=== PATIENT | female | born 1940 | race Hispanic/Latino ===

== ENCOUNTER 2017-07-03 17:11 | Inpatient (IN) | payer MEDICARE, BC ==
[2017-07-03 17:49] VITALS: BMI 24.6
--- NOTE | 2017-07-03 18:06 | ED PDOC ---
Arrival/HPI - General Chief Complaint: Seizure Time Seen by Provider: 07/03/17 17:11 Historian: Patient, Spouse - History of Present Illness Time/Duration: Other (Last night) Symptom Onset: Sudden Symptom Course: Resolved Severity Level: Severe Associated Symptoms (Text): 07/03/17 18:04 Patient was sitting on a train last evening next to her . described approximately 1 minute of shaking with foaming at the mouth and inability to wake his . She was incontinent of urine. No tongue biting. This has never happened previously. No history of seizures. She's been fine since then. No headache dizziness or lightheadedness. No numbness tingling or weakness. No chest pain palpitations or dyspnea. No abdominal pain nausea or vomiting. No injury or trauma. No fever or chills. Family/Social History - Physician Review Nursing Documentation Reviewed: Yes Family/Social History: Unknown Family HX Smoking Status: Never Smoked Hx Alcohol Use: No Hx Substance Use: No Allergies/Home Meds Allergies/Adverse Reactions: Allergies No Known Allergies Allergy (Verified 07/03/17 17:49) Home Medications: Home Meds Medication Instructions Recorded Confirmed Atorvastatin [Lipitor] 10 mg PO DAILY 07/03/17 07/03/17 Bimatoprost [Lumigan 2.5 ml] 2.5 ml OP DAILY 07/03/17 07/03/17 Brinzolamide/Brimonidine Tart 8 ml OP DAILY 07/03/17 07/03/17 [Simbrinza 0.2%-1% 8 ml] Lisinopril/Hydrochlorothiazide 20 mg PO DAILY 07/03/17 07/03/17 [Lisinopril-Hctz 20-12.5 mg Tab] Nadolol [Corgard] 20 mg PO DAILY 07/03/17 07/03/17 amLODIPine [Norvasc] 5 mg PO DAILY 07/03/17 07/03/17 Review of Systems - Physician Review All systems were reviewed & negative as marked: Yes - Review of Systems Constitutional: Normal Respiratory: Normal Cardiovascular: Normal Gastrointestinal: Normal Genitourinary Female: Normal Neurological: Normal. absent: Headache, Dizziness, Focal Weakness, Gait Changes Physical Exam Vital Signs Temp Pulse Resp BP Pulse Ox 07/03/17 17:53 98.6 F 94 H 20 163/93 H 97 Temperature: Afebrile Blood Pressure: Normal Pulse: Regular Respiratory Rate: Normal Appearance: Positive for: Well-Appearing, Non-Toxic, Comfortable Pain Distress: None Mental Status: Positive for: Alert and Oriented X 3 - Systems Exam Head: Present: Atraumatic, Normocephalic Pupils: Present: PERRL Extroacular Muscles: Present: EOMI Conjunctiva: Present: Normal Mouth: Present: Moist Mucous Membranes Pharnyx: No: ERYTHEMA, EXUDATE, TONSILS ENLARGED Neck: Present: Normal Range of Motion Respiratory/Chest: Present: Clear to Auscultation, Good Air Exchange. No: Respiratory Distress, Accessory Muscle Use Cardiovascular: Present: Regular Rate and Rhythm, Normal S1, S2. No: Murmurs Abdomen: No: Tenderness, Distention, Peritoneal Signs Upper Extremity: Present: Normal Inspection. No: Cyanosis, Edema Lower Extremity: Present: Normal Inspection. No: Edema Neurological: Present: GCS=15, CN II-XII Intact, Speech Normal, Motor Func Grossly Intact, Normal Sensory Function, Normal Cerebellar Funct, Gait Normal Skin: Present: Warm, Dry, Normal Color. No: Rashes Psychiatric: Present: Alert, Oriented x 3, Normal Insight, Normal Concentration Medical Decision Making ED Course and Treatment: 07/03/17 18:26 EKG shows normal sinus rhythm rate approximately 90 with a primary AV block and nonspecific ST and T-wave changes with no acute changes 07/03/17 19:51 CT scan of the head as read by the V rad radiologist shows no acute findings. 07/03/17 19:57 Discussed with neurologist , who wants the patient admitted to medicine for an MRI in the morning to rule out CVA and to give IV Depakote. 07/03/17 20:05 Discussed with who will admit to telemetry. She does not want Depakote. She requests on consult to make medication decisions. Consult has been ordered for her. CT Head Without Intravenous Contrast IMPRESSION: 1. No acute intracranial hemorrhage or acute territorial type infarct. 2. There are scattered foci of hypodensity within the cerebral white matter, likely representing small vessel ischemic disease in a patient this age. 3. Mild atrophy. 4. Paranasal sinus disease is noted above. Dictated and Authenticated by: Marco Antonio Luna MD 07/03/2017 7:46 PM Eastern Time ([place] & [place]) - Lab Interpretations Lab Results: 07/03/17 18:00 07/03/17 18:00 Lab Results 07/03/17 18:00: Sodium 138, Potassium 3.6, Chloride 101, Carbon Dioxide 25, Anion Gap 16, BUN 16, Creatinine 0.6 L, Est GFR ( Amer) > 60, Est GFR ( Non-Af Amer) > 60, Random Glucose 109, Calcium 10.3, Magnesium 2.3 H, Total Bilirubin 0.8, AST 31, ALT 31, Alkaline Phosphatase 89, Total Protein 7.6, Albumin 4.8, Globulin 2.9, Albumin/Globulin Ratio 1.7 07/03/17 18:00: WBC 10.4, RBC 4.54, Hgb 14.7, Hct 41.4, MCV 91.2, MCH 32.4, MCHC 35.5, RDW 13.1, Plt Count 196, MPV 9.1, Gran % 81.3 H, Lymph % (Auto) 12.5 L, [place] % (Auto) 5.6, Eos % (Auto) 0.5 L, Baso % (Auto) 0.1, Gran # 8.46 H, Lymph # (Auto) 1.3, [place] # (Auto) 0.6, Eos # (Auto) 0.1, Baso # (Auto) 0.01 - RAD Interpretation Radiology Orders: 07/03/17 18:03 HEAD W/O CONTRAST [CT] Stat Disposition/Present on Arrival - Present on Arrival Any Indicators Present on Arrival: No History of DVT/PE: No History of Uncontrolled Diabetes: No Urinary Catheter: No History of Decub. Ulcer: No - Disposition Have Diagnosis and Disposition been Completed?: Yes Diagnosis: Seizure Disposition: HOSPITALIZED Disposition Time: 20:06 Patient Plan: Observation, Telemetry Patient Problems: Current Active Problems Problem Status Onset Seizure Acute Condition: GOOD
[2017-07-03 18:29] LABS: BASO # 0.01 K/mm3 (0.0-2.0); BASO % 0.1 % (0.0-3.0); EOS # 0.1 (0.0-0.7); EOS % 0.5 % (1.5-5.0); GRAN # 8.46 (1.4-6.5); GRAN % 81.3 % (50.0-68.0); HEMOGLOBIN 14.7 g/dL (12.0-16.0); LYMPH # 1.3 (1.2-3.4); LYMPH % 12.5 % (22.0-35.0); MEAN CELL VOLUME 91.2 fl (80.0-105.0); MEAN CORPUSCULAR HEMOGLOBIN 32.4 pg (25.0-35.0); MEAN CORPUSCULAR HGB CONC 35.5 g/dl (31.0-37.0); MEAN PLATELET VOLUME 9.1 fl (7.0-11.0); MONO # 0.6 (0.1-0.6); MONO % 5.6 % (1.0-6.0); RBC 4.54 10^6/uL (3.5-6.1); RED CELL DISTRIBUTION WIDTH 13.1 % (11.5-14.5); WHITE BLOOD COUNT 10.4 10^3/ul (4.5-11.0)
[2017-07-03 19:03] LABS: ALB/GLOB RATIO 1.7 (1.1-1.8); ALBUMIN 4.8 g/dL (3.0-4.8); ALT/SGPT 31 U/L (7-56); AST/SGOT 31 U/L (14-36); BLOOD UREA NITROGEN 16 mg/dL (7-21); CALCIUM 10.3 mg/dL (8.4-10.5); GFR AFRICAN-AMERICAN > 60; GFR NON-AFRICAN AMERICAN > 60
--- NOTE | 2017-07-03 19:46 | CT ---
EXAM: CT Head Without Intravenous Contrast EXAM DATE/TIME: 07/03/2017 6:03 PM CLINICAL HISTORY: The patient age is 76 years old and is female; Signs and symptoms; Other: Seizure Facility exam id and description: Ct heads head w/o contrast TECHNIQUE: Axial computed tomography images of the head/brain without intravenous contrast. All CT scans at this facility use one or more dose reduction techniques, viz.: automated exposure control; ma/kV adjustment per patient size (including targeted exams where dose is matched to indication; i.e. head); or iterative reconstruction technique. Coronal and sagittal reformatted images were created and reviewed. COMPARISON: No relevant prior studies available. FINDINGS: Brain: There are scattered foci of hypodensity within the cerebral white matter, likely representing small vessel ischemic disease in a patient this age. The acuity of the white matter disease is indeterminate. No intracranial mass effect. The white-mccarty differentiation is preserved demonstrating no acute territorial type infarct. There is mild prominence of the sulci, compatible with atrophy. No acute intracranial hemorrhage is seen. There are calcifications within the globus pallidus bilaterally, which are likely physiologic. Midline shift: There is no midline shift. Ventricles: No ventriculomegaly. Bones/joints: The calvarium demonstrates no evidence for a depressed fracture. Soft tissues: No acute abnormality. Vasculature: There is atherosclerotic calcification of the intracranial internal carotid arteries and distal right vertebral artery. Sinuses: Mucous retention cysts or polyps are visualized within the bilateral maxillary sinuses. Mastoid air cells: No mastoid effusion. IMPRESSION: 1. No acute intracranial hemorrhage or acute territorial type infarct. 2. There are scattered foci of hypodensity within the cerebral white matter, likely representing small vessel ischemic disease in a patient this age. 3. Mild atrophy. 4. Paranasal sinus disease is noted above.
[2017-07-04] MEDS: levETIRAcetam 500mg IVPB 500 MG/100 ML BAG IVPB SCH ×3 (01:08→21:46)
[2017-07-04 10:59] LABS: BASO # 0.02 K/mm3 (0.0-2.0); BASO % 0.3 % (0.0-3.0); EOS # 0.1 (0.0-0.7); EOS % 0.9 % (1.5-5.0); GRAN # 4.47 (1.4-6.5); GRAN % 68.6 % (50.0-68.0); HEMOGLOBIN 12.8 g/dL (12.0-16.0); LYMPH # 1.4 (1.2-3.4); LYMPH % 20.7 % (22.0-35.0); MEAN CELL VOLUME 92.5 fl (80.0-105.0); MEAN CORPUSCULAR HEMOGLOBIN 31.8 pg (25.0-35.0); MEAN CORPUSCULAR HGB CONC 34.4 g/dl (31.0-37.0); MEAN PLATELET VOLUME 8.8 fl (7.0-11.0); MONO # 0.6 (0.1-0.6); MONO % 9.5 % (1.0-6.0); RBC 4.02 10^6/uL (3.5-6.1); RED CELL DISTRIBUTION WIDTH 13.2 % (11.5-14.5); WHITE BLOOD COUNT 6.5 10^3/ul (4.5-11.0)
[2017-07-04 11:04] LABS: BLOOD UREA NITROGEN 13 mg/dL (7-21); CALCIUM 9.4 mg/dL (8.4-10.5); GFR AFRICAN-AMERICAN > 60; GFR NON-AFRICAN AMERICAN > 60
[2017-07-04] MEDS ORDERED: Gadodiamide 287 MG/ML VIAL (15ML) IV ONE (12:41)
--- NOTE | 2017-07-04 14:22 | CARD ---
APPROVED REPORT EKG Measurement Heart [id number] <Conclusion> Sinus rhythm with 1st degree AV block Minimal voltage criteria for LVH, may be normal variant Nonspecific ST and T wave abnormality Abnormal ECG
--- NOTE | 2017-07-04 19:45 | HP ---
DATE OF EXAM: 07/04/2017 HISTORY OF PRESENT ILLNESS: Ms. Alatorre is a 76-year-old female who was coming from [place] on a train. noticed generalized tonic-clonic seizures with frothing in the mouth. She lost her sensorium. She was unarousable, lasted for a few seconds. She has gained consciousness and came back home, presented to the ED with that history. No prior history of seizures. No family history of stroke. She has a history of hypertension controlled with current medications. PAST MEDICAL HISTORY: Hypertension. PERSONAL HISTORY: Never smoked. No history of alcohol abuse. FAMILY HISTORY: No family history of stroke. ALLERGIES: NO KNOWN DRUG ALLERGIES. HOME MEDICATION: Lipitor 10 mg daily, lisinopril, hydrochlorothiazide 20 mg daily, nadolol 20 mg daily, Norvasc 5 mg daily. REVIEW OF SYSTEMS: As per HPI. Rest of 12-point review of systems reviewed negative. PHYSICAL EXAMINATION: GENERAL: Comfortable in bed, in no acute distress. VITAL SIGNS: Temperature 98.6, heart rate 97 per minute, respiratory rate 20 per minute, blood pressure 160/93. HEENT: Normal. NECK: No lymphadenopathy. CHEST: Air entry present and equal bilaterally. No added sounds. CARDIOVASCULAR: S1 and S2 normal. No murmur. No gallop. ABDOMEN: Soft, nontender. No hepatosplenomegaly. EXTREMITIES: No edema. SHIPPING ASSOCIATE: Alert and oriented x3. No focal sensory or motor deficit. Cranial nerves intact. LABORATORY DATA: White count 10.4, hemoglobin 14.7, hematocrit 41.4, platelet 196. Sodium 138, potassium 3.6, BUN 16, creatinine 0.6, glucose 109. CAT scan of the head is unremarkable, chronic ischemic changes visible, chronic white matter changes visible, chronic ischemia. ASSESSMENT: 1. Seizure. 2. Hypertension. PLAN: She is admitted to tele monitoring. Keppra 500 mg IV every 12 hours. MRI of the brain with and without contrast ordered. She is claustrophobic. Ativan 1 mg p.o. p.r.n. before the MRI. Neurology consultation of Dr. Galaviz requested. Continue IV Keppra. Further evaluation as per Neurology. Blood counts normal. Differential shows granulocytosis with lymphopenia. Discussed with the patient at length. If the workup is negative, she can follow with Neurology as an outpatient. MRI will be done today. Barbara Moreno MD [facility] # [id number] [place]
[2017-07-04] MEDS ORDERED: Latanoprost 2.5 ml Opht Soln OS SCH (22:00)
[2017-07-05 04:32] VITALS: O2SAT 97
[2017-07-05 06:52] LABS: BASO # 0.02 K/mm3 (0.0-2.0); BASO % 0.4 % (0.0-3.0); EOS # 0.1 (0.0-0.7); EOS % 2.5 % (1.5-5.0); GRAN # 2.3 (1.4-6.5); GRAN % 47.8 % (50.0-68.0); HEMOGLOBIN 12.3 g/dL (12.0-16.0); LYMPH # 1.9 (1.2-3.4); LYMPH % 40.2 % (22.0-35.0); MEAN CELL VOLUME 92.7 fl (80.0-105.0); MEAN CORPUSCULAR HEMOGLOBIN 31.9 pg (25.0-35.0); MEAN CORPUSCULAR HGB CONC 34.5 g/dl (31.0-37.0); MEAN PLATELET VOLUME 8.4 fl (7.0-11.0); MONO # 0.4 (0.1-0.6); MONO % 9.1 % (1.0-6.0); RBC 3.85 10^6/uL (3.5-6.1); RED CELL DISTRIBUTION WIDTH 13.4 % (11.5-14.5); WHITE BLOOD COUNT 4.8 10^3/ul (4.5-11.0)
[2017-07-05 07:30] LABS: BLOOD UREA NITROGEN 17 mg/dL (7-21); CALCIUM 9.6 mg/dL (8.4-10.5); GFR AFRICAN-AMERICAN > 60; GFR NON-AFRICAN AMERICAN > 60
--- NOTE | 2017-07-05 09:37 | PN ---
DATE: 07/05/2017 SUBJECTIVE: The patient has no complaints of any chest pain. No shortness of breath. No headaches or dizziness. She says she feels well. She was able to get some sleep last night, but not a restless sleep. PHYSICAL EXAMINATION: VITAL SIGNS: Temperature is 98.2, pulse of 58, blood pressure is 106/54, respiration is 19. GENERAL: The patient is lying in bed, flat, comfortable. HEENT: No oral lesion. Anicteric sclerae. Moist mucosa. NECK: No JVD, adenopathy, or thyromegaly. CARDIOVASCULAR: S1 and S2, regular. No murmurs, rubs, or gallops. LUNGS: Clear to auscultation bilaterally. No wheeze, rales, or rhonchi. ABDOMEN: Bowel sounds are positive, soft, nontender and nondistended. EXTREMITIES: No cyanosis, clubbing or edema. LABORATORY DATA: White count 4.8, hemoglobin 12.3. Creatinine 0.6. MRI of the brain is pending. ASSESSMENT: 1. Seizures, new onset. 2. Hypertension. 3. Dyslipidemia. 4. Visual impairment to left eye. PLAN: The patient is admitted to the hospital. She has had an MRI done. She still needs a carotid Doppler and EEG. She is going to be seen by Dr. Galaviz. She is on Lipitor for dyslipidemia. She is hydrochlorothiazide for her hypertension as well as Norvasc. She is on Xalatan for her glaucoma. She has been started on Keppra 500 mg every 12. She will continue on this. We will await further input from Dr. Galaviz about the case. Aristides Holland MD
--- NOTE | 2017-07-05 10:12 | US ---
PROCEDURE: Bilateral carotid artery duplex ultrasound HISTORY: Carotid stenosis PHYSICIAN(S): Tez Rosario MD. TECHNIQUE: Duplex sonography and color-flow Doppler were used to evaluate the carotid bifurcations and limited segments of the vertebral arteries bilaterally. FINDINGS: There is mild smooth heterogeneous plaque noted at the carotid bifurcations bilaterally. The peak systolic velocity in the proximal right internal carotid artery is 61 cm/sec. This corresponds to a 20 to 39% proximal right ICA stenosis. Normal systolic velocities are noted in the proximal right external carotid artery. There is antegrade flow in the right vertebral artery. The peak systolic velocity in the proximal left internal carotid artery is 63 cm/sec. This corresponds to a 20 to 39% proximal left ICA stenosis. Normal systolic velocities are noted in the proximal left external carotid artery. There is antegrade flow in the dominant left vertebral artery. IMPRESSION: 1. Bilateral 20-39% proximal ICA stenoses. 2. Antegrade flow in both vertebral arteries.
[2017-07-05] MEDS: levETIRAcetam 500mg IVPB 500 MG/100 ML BAG IVPB SCH (11:28)
[2017-07-05 11:36] VITALS: BP 147/93; PULSE 80
[2017-07-05 15:23] VITALS: RESP 17; TEMP 97.9
--- NOTE | 2017-07-05 15:59 | MRI ---
PROCEDURE: MRI BRAIN WITH AND WITHOUT CONTRAST HISTORY: seizures COMPARISON: None. TECHNIQUE: Multiplanar, multisequence MR images of the brain were obtained with and without intravenous contrast enhancement. 15 cc of Omniscan FINDINGS: HEMORRHAGE: None DWI: No evidence of an acute or early subacute infarction. BRAIN PARENCHYMA: No mass,mass effect or edema. No atrophy or chronic microvascular ischemic changes. ENHANCEMENT: No abnormal intracranial enhancement. VENTRICLES: Unremarkable. No hydrocephalus. CRANIUM: Unremarkable. ORBITS: Grossly unremarkable. PARANASAL SINUSES/MASTOIDS: Clear VASCULAR SYSTEM: Skull base flow voids intact. OTHER FINDINGS: None . IMPRESSION: Unremarkable pre and post contrast enhanced MRI of the brain.
--- NOTE | 2017-07-05 18:00 | CON ---
DATE: HISTORY OF PRESENT ILLNESS: This is a 76-year-old female with past medical history of anxiety and was sitting in a train and had episode of seizure, shaking and foaming from the mouth and no tongue bite, but the patient had urinary incontinence plus witnessed seizure. CAT scan of the head was done and negative. MRI is just pending result. Carotid Doppler was normal, only 20%-30% stenosis. HOME MEDICATIONS: Lipitor, lisinopril, Corgard, Norvasc. PHYSICAL EXAMINATION VITAL SIGNS: Blood pressure found on examination 163/93. HEENT: Normocephalic, atraumatic. NECK: Supple. NEUROLOGIC: Awake, alert, oriented x3. No aphasia. Cranial nerve II through XII were tested. Pupils reactive. EOM intact. Visual pereira full. No facial asymmetry. Tongue midline. Motor examination: Moves all the extremities equally. Tone normal. Deep tendon reflexes 1+. Both plantars are downgoing. Sensory appears intact. Cerebellar, gait normal. IMPRESSION AND PLAN: New onset of seizure and the patient is on Keppra. Continue present management. We will follow up. Allen Galaviz MD
== END 2017-07-05 18:37 | disposition home or self-care (01) | DRG 101 ==
LOC: ED 17:11 → ERH 20:03 → INTOOBSV 20:08 → OBSVTOIN 20:08 → ERH 20:31 → 3RSO 21:27 → OBSVTOIN 07-04 20:08
PROVIDERS: ADMIT Internal Medicine Nephrology; ATTEND Internal Medicine Nephrology
DX: R56.9 Unspecified convulsions (principal); I10 Essential (primary) hypertension; E78.5 Hyperlipidemia, unspecified; H54.7 Unspecified visual loss; Z79.899 Other long term (current) drug therapy; H40.9 Unspecified glaucoma